=== PATIENT | male | born 1965 | race Caucasian/White ===

== ENCOUNTER → 2024-04-03 | Outpatient (CLI) | payer BC ==
[2024-04-03 15:47] LABS: Vitamin B12 <150.0 pg/mL (200.0-944.0)
[2024-04-03 16:48] LABS: Basophils # (A) 0.03 X 10*3/uL (0.00-0.10); Basophils % (A) 0.4 %; Eosinophils % (A) 10.1 %; HCT 40.9 % (39.6-50.0); HGB 14.4 g/dL (13.0-17.0); Lymphocytes # (A) 1.41 X 10*3/uL (0.90-5.00); Lymphocytes % (A) 17.8 %; MCH 39.9 pg (27.0-32.0); MCHC 35.2 g/dL (32.0-37.0); MCV 113.3 FL (80.0-97.0); Mean Platelet Volume 9.4 FL (9.5-12.2); Monocytes # (A) 0.32 X 10*3/uL (0.20-1.00); NRBC Per 100 WBC 0 X 10*3/uL (0.00-0.01); Neutrophils # (A) 5.32 X 10*3/uL (1.80-7.70); Neutrophils % (A) 66.9 %; Platelet Count 279 X 10*3/uL (140-440); RBC 3.61 X 10*6/uL (4.40-5.60); RDW 13.4 % (11.5-14.5); WBC 7.94 X 10*3/uL (4.50-10.00)
[2024-04-03 18:30] LABS: Erythrocyte Sedimentation Rate 8 mm/Hr (0-20)
== END | disposition home or self-care (01) ==
LOC: LABWHC1 08:54
PROVIDERS: ATTEND Otolaryngology
DX: K14.0 Glossitis (principal)
CPT/HCPCS: 36415; 82607; 82746; 84443; 85025; 85652; 86235

== ENCOUNTER 2024-10-02 12:07 | Day surgery (SDC) | payer BC ==
[2024-10-01 09:24] VITALS: BMI 37.2
[~2024-10-02 12:07] MED LIST: LACTATED RINGERS 1,000 ML IV SCH; LIDOCAINE 1% (10MG/ML) FOR IV START INTRADERMA PRN
[2024-10-02 12:46] LABS: Glucose,Whole Blood 167 mg/dL (70-110)
[2024-10-02 12:49] VITALS: TEMP 97.2
[2024-10-02] MEDS: IV FLUID CONTINUATION 1,000 ML IV ONE (12:49)
[2024-10-02] MEDS ORDERED: PROPOFOL 10 MG/ML 20 ML VIAL IV ONE (12:53)
--- NOTE | 2024-10-02 12:58 | P.GSHP ---
History of Present Illness H&P Date: 10/02/24 Chief Complaint: Colon cancer screening 59-year-old male here for colonoscopy. Last colonoscopy 10 years ago or so he thinks. He is unsure of those findings. No family history of colon cancer. Past Medical History Past Medical History: Diabetes Mellitus, Hypertension, Skin Disorder, Thyroid Disorder Additional Past Medical History / Comment(s): psoriasis History of Any Multi-Drug Resistant Organisms: None Reported Additional Past Surgical History / Comment(s): eye surgery laser, colonoscopy Past Anesthesia/Blood Transfusion Reactions: No Reported Reaction Additional Past Anesthesia/Blood Transfusion Reaction / Comment(s): no blood transfusion Smoking Status: Never smoker - Past Family History Sister(s) Family Medical History: Cancer Additional Family Medical History / Comment(s): rectal Mother Additional Family Medical History / Comment(s): bowel obstruction Medications and Allergies Home Medications Medication Instructions Recorded Confirmed Type Enalapril [Vasotec] 20 mg PO HS 10/01/24 10/02/24 History Escitalopram [Lexapro] 10 mg PO HS 10/01/24 10/02/24 History Insulin Aspart Scale Rx Form 1 each MISCELLANE DIRECTED 10/01/24 10/02/24 History [NovoLOG Outpatient Scale Rx Form] Insulin Glargine (Lantus) [Lantus 50 unit SQ HS 10/01/24 10/02/24 History Vial] Levothyroxine Sodium [Synthroid] 200 mcg PO DAILY 10/01/24 10/02/24 History Simvastatin [Zocor] 20 mg PO HS 10/01/24 10/02/24 History Allergies Allergy/AdvReac Type Severity Reaction Status Date / Time Penicillins Allergy Unknown Verified 10/02/24 12:33 Surgical - Exam Vital Signs Temp Pulse Resp BP Pulse Ox 97.2 F L 69 18 174/77 97 10/02/24 12:47 10/02/24 12:47 10/02/24 12:47 10/02/24 12:47 10/02/24 12:47 Physical exam: General: Well-developed, well-nourished HEENT: Normocephalic, sclerae nonicteric Abdomen: Nontender, nondistended Extremities: No edema Neuro: Alert and oriented Results - Labs Abnormal Lab Results - Last 24 Hours (Table) 10/02/24 Range/Units 12:44 POC Glucose (mg/dL) 167 H (70-110) mg/dL Assessment and Plan (1) Colon cancer screening Narrative/Plan: Will proceed with colonoscopy at this time. Current Visit: Yes Status: Acute Code(s): Z12.11 - ENCOUNTER FOR SCREENING FOR MALIGNANT NEOPLASM OF COLON SNOMED Code(s): 319243921
--- NOTE | 2024-10-02 13:18 | P.PCN ---
Date of Procedure: 10/02/24 Procedure(s) Performed: PREOPERATIVE DIAGNOSIS: Colon cancer screening POSTOPERATIVE DIAGNOSIS: Descending colon polyp PROCEDURE: Colonoscopy with snare polypectomy and clip placement ANESTHESIA: MAC SURGEON: Luis A Maxwell M.D. SPECIMENS: Polyp ENDOSCOPIC PROCEDURE: The patient was placed on the endoscopy table in the left decubitus position. The Olympus colonoscope was inserted into the anus and passed under direct visualization to the cecum. I was unable to advance beyond the valve to visualize the base of the cecum. This was because of significant tortuosity throughout the colon. Multiple position changes were attempted. What I could see of the cecum appeared normal. From that point the scope was slowly withdrawn inspecting all surfaces carefully. There were no neoplastic inflammatory or polypoid lesions throughout the cecum, ascending, and transverse colon. In the descending colon there is noted to be a small polyp that was removed using the snare without cautery. The patient had some persistent oozing there and a clip was deployed. No further bleeding was seen. The remainder of the descending sigmoid and rectum appeared normal. There was no visible diverticulosis. The patient had a large volume of liquid stool throughout the colon. Most of this was able to be evacuated. Evacuation volume approximately 700 cc. Digital rectal examination was normal. The patient was taken to the recovery room in stable condition per anesthesia guidelines. RECOMMENDATIONS: Await biopsy results. Will contact patient with timing of next colonoscopy.
[2024-10-02 13:41] VITALS: BP 100/57; PULSE 78; RESP 18
== END 2024-10-02 14:34 | disposition home or self-care (01) ==
LOC: ORWHC2ENDO 12:07
PROVIDERS: ATTEND Surgery
DX: Z12.11 Encounter for screening for malignant neoplasm of colon (principal); D12.4 Benign neoplasm of descending colon; I10 Essential (primary) hypertension; E11.9 Type 2 diabetes mellitus without complications; E78.5 Hyperlipidemia, unspecified; E03.9 Hypothyroidism, unspecified; L40.9 Psoriasis, unspecified; F32.A Depression, unspecified; Z79.890 Hormone replacement therapy; Z79.4 Long term (current) use of insulin; Z79.899 Other long term (current) drug therapy; Z88.0 Allergy status to penicillin
CPT/HCPCS: 88305; 45385; J2704